=== PATIENT | male | born 1970 ===

== ENCOUNTER 2019-03-08 15:07 | Outpatient (CLI) | payer OTHER ==
[~2019-03-08] VITALS: Ht 177.8 cm; Wt 163.3 kg
== END 2019-03-08 15:30 | disposition home or self-care (01) ==
LOC: OFIC 805 15:07
DX: T17.298A Other foreign object in pharynx causing other injury, initial encounter (principal)

== ENCOUNTER 2023-03-11 18:30 | Inpatient (IN) | payer OTHER ==
[~2023-03-11] VITALS: Ht 177.8 cm; Wt 131.5 kg
--- NOTE | 2023-03-11 18:50 | NUR ---
PACIENTE ALERTA Y ORIENTADA X3. REFIERE QUE LLEVA CON FALTA DE AIRE DESDE HACE 1 MES Y QUE HOY SE LE EXACERBO
[2023-03-11] MEDS ORDERED: LOSARTAN POTASS50 MG PO (18:52)
[2023-03-11] MEDS ORDERED: HUMALOG100 UNIT/2 SQ (18:52)
[2023-03-11] MEDS ORDERED: FARXIGA5 MG PO (18:52)
--- NOTE | 2023-03-11 20:31 | NUR ---
SE EDUCA PACEINTE SOBRE TX A RECIBIR EL MISMO REFIERE ENTENDER, SE LE ADMINISTRA MEDICAMENTO JOHN ORDEN MEDICA, SE CANALIZA Y SE REALIZAN MUESTRAS DE LAB BAJO MEDIDAS ASEPTICAS. SE ENVIAN DE FORMA INMEDIATA. SE MORELIA PACIENTE EN AU PARA TERAPIA RESPIRATORIA PENDIENTE A COLECTAR MUESTRAS DE ABG Y EKG.
--- NOTE | 2023-03-11 22:52 | NUR ---
SE REALIZA EKG A PACIENTE EN WEST Y SE HACE ENTREGA AL DOCTOR ANGEL CUAL EVALUA A PACIENTE Y DECIDE ADMSION DEL MISMO.
--- NOTE | 2023-03-11 22:53 | NUR ---
SE MORELIA PACIENTE EN WEST EN COMPLETO DESCANSO.
== END 2023-03-12 14:13 | disposition left against medical advice (07) | DRG 293 ==
LOC: ER 18:30 → SURH 23:36
PROVIDERS: ADMIT Specialist; ATTEND Specialist
PROC: 3E0F7GC Introduction of Other Therapeutic Substance into Respiratory Tract, Via Natural or Artificial Opening (ICD-10-PCS; principal; 2023-03-11)
PROC: 4A033R1 Measurement of Arterial Saturation, Peripheral, Percutaneous Approach (ICD-10-PCS; 2023-03-11)
DX: I11.0 Hypertensive heart disease with heart failure (principal); I50.9 Heart failure, unspecified; R60.9 Edema, unspecified; Z20.822 Contact with and (suspected) exposure to COVID-19